=== PATIENT | male | born 1945 | race Hispanic/Latino ===

== ENCOUNTER → 2018-09-07 | Day surgery (SDC) | payer MEDICARE ==
[~2018-09-07] MED LIST: ASPIR 8181 MG PO; ATORVASTATIN CA20 MG PO; DEXTROSE 5% 250ML 250 ML IV ONE; FAMOTIDINE20 MG PO; FENTANYL CITRATE/PF 100MCG/2 ML INJ ONE; FISH OIL 1,2001 EACH PO; FOLIC ACID0.8 MG PO; GLIPIZIDE ER2.5 MG PO; HYDRALAZINE HCL25 MG PO; IRON PO; LEVEMIR100 UNIT/1 SQ; LEVOTHYROXINE25 MCG PO; METOPROLOL SUCC50 MG PO; MIDAZOLAM HCL 2 MG/2 ML VIAL ONE; PENTOXIFYLLINE400 MG PO; PROPOFOL IV EMULSION 10 MG/ML 50 ML VIAL ONE; VITAMIN C PO; VITAMIN C500 M2 PO; VITAMIN D31000 UNI1 PO
--- OUTSIDE RECORDS SUMMARY | 2018-09-07 08:17 | XMS REPORT | Clinical Summary ---
Author Author [facility] Address Unknown Phone Unavailable Care Team Providers Care Crop Roller Name Role Phone Praveena Cortes MD PCP Allergies No Known Allergies Medications End Date Status Medication Sig Dispensed Refills Start Date Active levothyroxine (SYNTHROID, Take 25 mcg 0 LEVOXYL) 25 mcg tablet by mouth every morning. Active atenolol (TENORMIN) 25 MG Take 25 mg by 0 tablet mouth daily. Active atorvastatin (LIPITOR) 20 Take 20 mg by 0 MG tablet mouth daily. Default OP ins Active folic acid (FOLVITE) 1 MG Take 1 mg by 0 tablet mouth daily. Active amLODIPine (NORVASC) 10 Take 10 mg by 0 mg tablet mouth daily. Active insulin detemir U-100 Inject 30 0 (LEVEMIR) 100 unit/mL Units under injection the skin nightly. Active aspirin (ECOTRIN) 81 MG Take 81 mg by 0 enteric coated tablet mouth daily. Active ferrous sulfate (IRON Take by 0 ORAL) mouth. Active famotidine (PEPCID) 20 MG TK 1 T PO QD 0 tablet 9 Active glipiZIDE (GLUCOTROL) 2.5 TK 1 T PO QD 0 MG 24 hr tablet 9 Active hydrALAZINE (APRESOLINE) TK 1 T PO TID 2 50 MG tablet 9 Active metoprolol tartrate 0 (LOPRESSOR) 50 mg tablet 9 Active pentoxifylline (TRENTal) TK 1 T PO BID 1 400 mg CR tablet 9 09/07/2018 Active sulfamethoxazole-trimetho Take 1 tablet 10 tablet 0 prim (BACTRIM DS) 800-160 by mouth 2 9 mg per tablet (two) times a day for 5 days. Status Hospital, Clinic, or Ordered Dose Route Frequency Start End Date Other Facility Date Administered Medication Active ciprofloxacin (CIPRO) 500 mg oral 2 times daily at 0600, 09/03/19 tablet 500 mg 1600 19 Active Problems Problem Noted Date BPH (benign prostatic hyperplasia) 08/13/2017 Encounters Care Team Description Date Type Specialty Oliver Alfaro MD 09/02/2018 Anesthesia General Surgery Event Sridhar Ray MD CYSTOSCOPY BIALTERAL ATTEMPTED RETEROGRADE PYELOGRAM, BIALTERAL URETERAL STENT REMOVAL 09/02/2018 Surgery General Surgery Sridhar Ray MD Hydronephrosis, unspecified hydronephrosis type 09/02/2018 Hospital General Surgery Encounter Sridhar Ray MD Preop testing (Primary Dx) 09/01/2018 Pre-Admit Pre-Admission Testing Testing Appointment Sridhar Ray MD Hydronephrosis, unspecified hydronephrosis type (Primary Dx) 08/25/2018 Transcribe Access Orders after 09/06/2017 Family History Medical History Relation Name Comments No Known Problems Father No Known Problems Mother Relation Name Status Comments Father Mother Social History Date Tobacco Use Types Packs/Day Years Used Quit: 1971 Former Smoker Cigarettes 4 Smokeless Tobacco: Never Used Alcohol Use Drinks/Week oz/Week Comments No Sex Assigned at Date Recorded Not on file Industry Job Start Date Occupation Not on file Not on file Not on file Travel End Travel History Travel Start No recent travel history available. Last Filed Vital Signs Time Taken Vital Sign Reading 09/02/2018 2:23 PM CDT Blood Pressure 212/91 09/02/2018 2:23 PM CDT Pulse 58 09/02/2018 2:23 PM CDT Temperature 36.2 C (97.2 F) 09/02/2018 2:23 PM CDT Respiratory Rate 18 09/02/2018 2:23 PM CDT Oxygen Saturation 97% - Inhaled Oxygen - Concentration 09/02/2018 9:29 AM CDT Weight 97.3 kg (214 lb 9.6 oz) 09/02/2018 9:29 AM CDT Height 165.1 cm (5' 5") 09/02/2018 9:29 AM CDT Body Mass Index 35.71 Plan of Treatment Health Maintenance Due Date Last Done Comments COLONOSCOPY SCREENING 1996 SHINGLES VACCINES (#1) 1996 65+ PNEUMOCOCCAL VACCINE 05/03/2011 (1 of 2 - PCV13) INFLUENZA VACCINE 09/09/2018 Implants Device Identifier Shelf Expiration Date Model / Serial / Lot Implanted Type Area Manufactur er 08/05/2019 [id number] / / [id number] Stent [place] [facility] Surgical N/A: N/A [employer] 20cm - [id number] Stents INTERVENTI Implanted: 05/25/2017 (Quantity not ONAL on file) RADIOLOGY 08/05/2019 [id number] / / [id number] Stent [place] [facility] Surgical N/A: N/A [employer]k 20cm - [id number] Stents INTERVENTI Implanted: 05/25/2017 (Quantity not ONAL on file) RADIOLOGY 04/08/2020 [id number] / / [id number] Stent Set Ureteral [employer] Surgical Right: Ureter, COOK 5fr X 22cm - [id number] Stents [place] UROLOGICAL Implanted: Qty: 1 on 08/13/2017 by Sridhar Ray MD 04/08/2020 [id number] / / [id number] Stent Set Ureteral [facility] Surgical Left: Ureter, COOK 5fr X 22cm - [id number] Stents [place] UROLOGICAL Implanted: Qty: 1 on 08/13/2017 by Sridhar Ray MD Procedures Comments Procedure Name Priority Date/Time Associated Diagnosis FL PYELOGRAM RETROGRADE Routine 09/02/2018 2:19 PM CDT SURGICAL PATHOLOGY Routine 09/02/2018 REQUEST 2:03 PM CDT POC GLUCOSE Routine 09/02/2018 9:45 AM CDT ECG PRE/POST OP Routine 09/01/2018 Preop testing 5:30 PM CDT ESTIMATED GFR Routine 09/01/2018 5:08 PM CDT HEMOGLOBIN A1C Routine 09/01/2018 Preop testing 5:08 PM CDT BASIC METABOLIC PANEL Routine 09/01/2018 Preop testing 5:08 PM CDT HC COMPLETE BLD COUNT Routine 09/01/2018 Preop testing W/AUTO DIFF 5:[address] RENAL STONE PROTOCOL Routine 08/25/2018 Hydronephrosis, 12:17 PM CDT unspecified hydronephrosis type after 09/06/2017 Results * FL Pyelogram Retrograde (09/02/2018 2:19 PM CDT) Specimen Narrative Performed At IMPRESSION:C-arm Fluoroscopy under 1 hour was provided in the OR for the [facility] referring physician.A radiologist was not present during the procedure. Refer to the Operative report issued by the performing provider for procedure details. Procedure Note Interface, Radiology Results Incoming - 09/02/2018 2:46 PM CDT IMPRESSION: C-arm Fluoroscopy under 1 hour was provided in the OR for the referring physician. A radiologist was not present during the procedure. Refer to the Operative report issued by the performing provider for procedure details. Performing Organization Address City/[facility]/Zipcode Phone Number [facility] [address] [place] [address] * Surgical pathology request (09/02/2018 2:03 PM CDT) Pathologist [facility] DEPARTMENT OF PATHOLOGY AND GENOMIC MEDICINE Surgical See link below for PDF Lab [facility] DEPARTMENT pathology Report OF PATHOLOGY report AND GENOMIC MEDICINE Result status This is Final Report for [facility] DEPARTMENT [id number] OF PATHOLOGY AND GENOMIC MEDICINE Specimen Performing Organization Address City/[facility]/Zipcode Phone Number [facility] DEPARTMENT [address] [place] [address] PATHOLOGY AND GENOMIC MEDICINE * POC glucose (09/02/2018 9:45 AM CDT) [facility] POC glucose 124 (H) 65 - 100 mg/dL [facility] Comment: [facility] Meter ID: [id number] [facility] Bottoming Machine Operator: [facility] Specimen Performing Organization Address City/State/Zipcode Phone Number [facility] DEPARTMENT OF [address] [place] [address] PATHOLOGY AND GENOMIC MEDICINE [facility] [place] [address] * ECG Pre/Post Op (09/01/2018 5:30 PM CDT) Pathologist [facility] Ventricular 76 [facility] MUSE rate Atrial rate 76 [facility] MUSE [place] interval 140 [facility] QRSD interval 94 [facility] QT interval 396 [facility] MUSE QTC interval 445 [facility] MUSE P axis 1 70 [facility] MUSE QRS axis 1 13 [facility] MUSE T wave axis 58 [facility] MUSE EKG impression Normal sinus rhythm-Normal [facility] MUSE ECG- Specimen Narrative Performed At Performing Organization Address City/State/Zipcode Phone Number [facility] MUSE [address] [place] [address] * Estimated GFR (09/01/2018 5:08 PM CDT) Estimated GFR 25 (A) mL/min/1.73 m2 [facility] Comment: [facility] G1 >=90 Normal or high G2 60-89Mildly decreased A6y64-82 Mildly to moderately decreased J7e68-54 Moderately to severely decreased G4 15-29Severely decreased G5 <15Kidney failure The eGFR was calculated using the Chronic Kidney Disease Epidemiology Collaboration (CKD-EPI) equation. Interpretation is based on recommendations of the National Kidney Foundation-Kidney Disease Outcomes Quality Initiative (NKF-KDOQI) published in 2014. Specimen Plasma specimen Performing Organization Address City/State/Zipcode Phone Number [facility] OF [address] [place] [address] PATHOLOGY AND GENOMIC MEDICINE [facility] [address] * CBC with platelet and differential (09/01/2018 5:08 PM CDT) Pathologist [facility] WBC 11.3 (H) 4.2 - 11.0 k/uL [facility] RBC 3.91 (L) 4.04 - 5.86 m/uL [facility] HGB 11.6 (L) 13.0 - 17.3 g/dL [facility] HCT 37.6 34.0 - 45.0 % [facility] MCV 96.2 80.0 - 98.0 fL [facility] MCH 29.7 27.0 - 34.0 pg [facility] MCHC 30.9 (L) 31.5 - 36.5 g/dL [facility] RDW - SD 47.3 37.0 - 51.0 fL [facility] MPV 10.8 (H) 7.4 - 10.4 fL [facility] Platelet count 230 150 - 400 k/uL [facility] Nucleated RBC 0.00 /100 WBC [facility] Neutrophils 71.1 (H) 36.0 - 66.0 % [facility] Lymphocytes 18.0 (L) 24.0 - 44.0 % [facility] Monocytes 7.0 (H) 0.0 - 6.0 % [facility] Eosinophils 2.8 0.0 - 6.0 % [facility] Basophils 0.7 0.0 - 1.2 % [facility] Immature 0.4 0.0 - 1.0 % [facility] granulocytes [facility] Specimen Blood Performing Organization Address City/State/Zipcode Phone Number [facility] [address] [place] [address] PATHOLOGY AND GENOMIC MEDICINE [address] * Hemoglobin A1c (09/01/2018 5:08 PM CDT) Hemoglobin A1C 6.4 (H) 4.0 - 5.6 % [facility] Comment: [facility] HbA1c cutoffs for diagnosing [facility] diabetes: HOSPITAL 4.0% - 5.6%=normal 5.7% - 6.4%=increased risk for diabetes (prediabetes) >=6.5%=diabetes Goals for glycemic control (ADA 2016) < 7.0%Target for non adults with diabetes. More or less stringent targets may be appropriate for individual patients. <7.5% Target for Children and adolescents with type 1 diabetes. Specimen Blood Performing Organization Address City/State/Zipcode Phone Number [facility] [address] [place] [address] PATHOLOGY AND GENOMIC MEDICINE [address] * Basic metabolic panel (09/01/2018 5:08 PM CDT) Sodium 142 135 - 150 mEq/L [facility] Potassium 4.0 3.5 - 5.0 mEq/L [facility] Chloride 107 98 - 112 mEq/L [facility] CO2 19 (L) 24 - 31 mmol/L [facility] Anion gap 16@ANIO (H) 7 - 15 mEq/L [facility] BUN 42 (H) 7 - 18 mg/dL [facility] Creatinine 2.50 (H) 0.70 - 1.20 mg/dL [facility] Glucose 176 (H) 65 - 100 mg/dL [facility] Calcium 9.9 8.8 - 10.2 mg/dL [facility] Specimen Plasma specimen Performing Organization Address City/State/Zipcode Phone Number [facility] DEPARTMENT OF [address] [place] [address] PATHOLOGY AND GENOMIC MEDICINE [facility] [address] [place] [address] * CT Renal Stone Protocol (08/25/2018 12:17 PM CDT) Specimen Narrative Performed At EXAMINATION:CT RENAL STONE PROTOCOL [facility] CLINICAL HISTORY:N13.30 Unspecified hydronephrosis, hydornephrosis TECHNIQUE: Multiple axial images of the abdomen and pelvis were obtained without intravenous administration of iodinated contrast. Sagittal and coronal computerized reformatted images were also obtained. The lack of intravenous contrast reduces the sensitivity of detecting solid organ disease. CT imaging was performed with iterative reconstruction techniques and/or automated exposure control to reduce radiation dose. COMPARISON:None. FINDINGS: 1.Bilateral double-J ureteral stents are appropriately positioned. There is mild dilation of the left upper renal pole calyces and right upper renal pole calyces, but the renal pelves and ureters are not dilated. Soft tissue linear tracts from previous bilateral percutaneous nephrostomies are present. There is no fluid or inflammation around the tracts to imply fistula. There is a small left cortical renal hypodensity, 8 mm, likely a benign cyst. A 5 mm right renal cortical lesion is mildly hyperdense and a left upper pole 6 mm cortical lesion is isodense, these are indeterminate. No urinary calculus is seen. Urinary bladder is unremarkable. 2.The unenhanced liver, spleen, pancreas, and adrenals are unremarkable. 3.The patient appears to have undergone a cholecystectomy. Small nodularity of the cystic duct stump could be scarring. Small tiny stones retained in the cystic duct stump are not excluded. There is no biliary dilation. 4.No bowel obstruction or inflammation is present. The appendix is not seen. The stomach is unremarkable. 5.There is no ascites or significant lymphadenopathy. 6.There is complete osseous fusion of the right hip joint. Degenerative changes are present in the spine. There is no aggressive skeletal finding. IMPRESSION: Appropriately positioned bilateral double-J ureteral stents. Mild bilateral upper pole calyceal dilation. Subcentimeter indeterminate bilateral renal cortical lesions as discussed. [id number] Procedure Note Interface, Radiology Results - 08/25/2018 12:40 PM CDT EXAMINATION: CT RENAL STONE PROTOCOL CLINICAL HISTORY: N13.30 Unspecified hydronephrosis, hydornephrosis TECHNIQUE: Multiple axial images of the abdomen and pelvis were obtained without intravenous administration of iodinated contrast. Sagittal and coronal computerized reformatted images were also obtained. The lack of intravenous contrast reduces the sensitivity of detecting solid organ disease. CT imaging was performed with iterative reconstruction techniques and/or automated exposure control to reduce radiation dose. COMPARISON: None. FINDINGS: 1. Bilateral double-J ureteral stents are appropriately positioned. There is mild dilation of the left upper renal pole calyces and right upper renal pole calyces, but the renal pelves and ureters are not dilated. Soft tissue linear tracts from previous bilateral percutaneous nephrostomies are present. There is no fluid or inflammation around the tracts to imply fistula. There is a small left cortical renal hypodensity, 8 mm, likely a benign cyst. A 5 mm right renal cortical lesion is mildly hyperdense and a left upper pole 6 mm cortical lesion is isodense, these are indeterminate. No urinary calculus is seen. Urinary bladder is unremarkable. 2. The unenhanced liver, spleen, pancreas, and adrenals are unremarkable. 3. The patient appears to have undergone a cholecystectomy. Small nodularity of the cystic duct stump could be scarring. Small tiny stones retained in the cystic duct stump are not excluded. There is no biliary dilation. 4. No bowel obstruction or inflammation is present. The appendix is not seen. The stomach is unremarkable. 5. There is no ascites or significant lymphadenopathy. 6. There is complete osseous fusion of the right hip joint. Degenerative changes are present in the spine. There is no aggressive skeletal finding. IMPRESSION: Appropriately positioned bilateral double-J ureteral stents. Mild bilateral upper pole calyceal dilation. Subcentimeter indeterminate bilateral renal cortical lesions as discussed. [id number] Performing Organization Address City/State/Zipcode Phone Number [facility] [address] [place] [address] after 09/06/2017 Insurance Type Payer Benefit Subscriber ID Effective Phone Address Plan / Dates Group Medicare MEDICARE MEDICARE xxxxxxxxxxx 2011-P [place], PART A AND resent [place] Advance Directives Patient has advance care planning documents on file. For more information, brant grijalva contact: Carlos Melendez [address] [place] [address]
[2018-09-07 08:52] LABS: BASOPHILS # (AUTO) 0.1 (0.0-0.1); BASOPHILS % 0.8 % (0.0-1.0); EOSINOPHILS # (AUTO) 0.2 (0.0-0.4); EOSINOPHILS % 1.5 % (0.0-6.0); HEMATOCRIT 37.2 % (38.2-49.6); HEMOGLOBIN 12.3 g/dL (14.0-18.0); LYMPHOCYTES # (AUTO) 1.9 (1.0-3.2); LYMPHOCYTES % 18.7 % (18.0-39.1); MEAN CORPUSCULAR HEMOGLOBIN 30.5 pg (28-32); MEAN CORPUSCULAR HGB CONC 33.1 g/dL (31-35); MEAN CORPUSCULAR VOLUME 92.3 fL (81-99); MONOCYTES # (AUTO) 0.8 (0.2-0.8); MONOCYTES % 8.1 % (4.4-11.3); NEUTROPHILS % 70.5 % (38.7-80.0); PLATELET COUNT 257 x10e3/uL (140-360); RED BLOOD COUNT 4.03 x10e6/uL (4.3-5.7); RED CELL DISTRIBUTION WIDTH 13.7 % (11.7-14.4)
[2018-09-07 11:50] VITALS: BP 148/71
== END | disposition home or self-care (01) ==
LOC: OR 08:04
PROVIDERS: ATTEND Internal Medicine Gastroenterology
DX: R19.5 Other fecal abnormalities (principal); K29.50 Unspecified chronic gastritis without bleeding; B96.81 Helicobacter pylori [H. pylori] as the cause of diseases classified elsewhere; K63.89 Other specified diseases of intestine; K44.9 Diaphragmatic hernia without obstruction or gangrene; I10 Essential (primary) hypertension; E11.9 Type 2 diabetes mellitus without complications; E03.9 Hypothyroidism, unspecified; E78.5 Hyperlipidemia, unspecified; D50.9 Iron deficiency anemia, unspecified; Z79.84 Long term (current) use of oral hypoglycemic drugs; Z79.82 Long term (current) use of aspirin; Z79.4 Long term (current) use of insulin; Z68.41 Body mass index [BMI] 40.0-44.9, adult; Z87.891 Personal history of nicotine dependence
CPT/HCPCS: 36415; 43239; 45378; 82948; 85025; 88305; 88312; 93005; J2250; J2704; J3010; J7070